=== PATIENT | male | born 1975 | race Caucasian/White ===

== ENCOUNTER 2024-11-18 11:03 | Emergency (ER) | payer OTHER, SELFPAY ==
[2024-11-18 11:10] VITALS: BP 117/84
[2024-11-18 12:07] LABS: INR 0.92; PT 12.9 Sec (11.4-14.6)
[2024-11-18 12:09] LABS: ALT (SGPT) 27 U/L (0-50); AST (SGOT) 21 U/L (17-59); Albumin 4.8 g/dl (3.5-5.0); Alkaline Phosphatase 79 U/L (38-126); Blood Urea Nitrogen 14 mg/dl (9-20); Calcium 9.9 mg/dl (8.4-10.2); Carbon Dioxide 15 mmol/L (22-30); Chloride 106 mmol/L (98-107); Glucose 140 mg/dl (70-99); Hematocrit 44.2 % (39.0-52.0); Hemoglobin 15.1 g/dL (13.0-18.0); Mean Corp Hgb Conc. 34.2 g/dL (33.0-37.0); Mean Corpuscular Volume 94.0 fL (80.0-94.0); Nucleated Red Blood Cells % 0 % (-); Platelet Count 196 10^3/uL (130-400); Potassium 4.3 mmol/L (3.5-5.1); Red Cell Dist. Width 12.6 % (11.5-14.5); Sodium 138 mmol/L (135-145); Total Protein 8.1 g/dl (6.3-8.2); eGFR > 60.00
[2024-11-18 12:14] LABS: Troponin I < 0.012 ng/ml
[2024-11-18 12:19] VITALS: BP 131/83
--- NOTE | 2024-11-18 12:32 | ED.GENMED ---
History of Present Illness
General
Chief Complaint: Cardiac Symptoms
Time Seen by Provider: 11/18/24 12:30
History of Present Illness
History of Present Illness:
PAST MEDICAL HISTORY AND REVIEW OF OLD RECORDS
- I reviewed records, the patient has a history of Alzheimer's, Parkinson's, bipolar/depression. I reviewed records. The patient was seen here in 2021 also with palpitations and was found to be tachycardic at that time. At that time, his glucose
was 285.
CHIEF COMPLAINT(S)
Palpitations with intermittent heart racing over the past few days.
HISTORY OF PRESENT ILLNESS
The patient is a 49-year-old male with a history of diabetes and hyperlipidemia, who presents to the emergency department with complaints of his heart racing intermittently over the past few days. He reports that the sensation is similar to 'my
heart wanting to jump out of my chest,' though he denies experiencing this sensation at the time of the visit. The patient describes having experienced symptoms of cognitive impairment following a COVID-19 infection, which he likens to Alzheimers
but without a formal diagnosis. No history of Alzheimers or Parkinsons disease is documented. He denies any recent diarrhea or vomiting and feels he is adequately hydrated owing to water intake at work. Initial evaluation reveals borderline high
heart rate; however, an electrocardiogram showed normal results without arrhythmias. Bloodwork indicated a low bicarbonate level, potentially linked to dehydration.
PAST MEDICAL AND SURIGICAL HISTORY
- Diabetes Mellitus
- Hyperlipidemia
- Post-COVID cognitive impairment
- Previous surgeries causing back pain, though specifics not detailed
CHRONIC MEDICAL CONDITIONS SIGNIFICANTLY AFFECTING CARE
- Diabetes Mellitus
- Hyperlipidemia
- Post-COVID cognitive impairment
PHYSICAL EXAM
General: Alert, no acute distress.
Skin: Warm, dry.
Head: Normocephalic, atraumatic.
Neck: Supple, trachea midline.
Ears, Nose, Mouth, and Throat: Oral mucosa moist.
Cardiovascular: Normal peripheral perfusion, No edema. Heart rate noted as borderline high.
Respiratory: Respirations are non-labored.
Gastrointestinal: Abdomen nondistended
Back: Normal alignment; History of surgical interventions causing pain.
Musculoskeletal: Normal range of motion, normal strength.
Neurological: Alert and oriented to person, place, time, and situation, no focal neurological deficits observed.
Psychiatric: Cooperative, appropriate mood and affect.
PROBLEM LIST
Acute:
- Intermittent palpitations
- Suspected dehydration
Chronic:
- Diabetes Mellitus
- Hyperlipidemia
- Cognitive impairment post-COVID
PLAN
- Intravenous fluids to address potential dehydration and low bicarbonate levels.
- Monitor vitals and heart rate for any changes or signs of arrhythmia.
- Follow-up with a resourcing consultant, Dr. Sepulveda, as previously established care.
- Consider further evaluation or monitoring for back pain related to past surgeries, if symptoms persist or worsen.
DIFFERENTIAL DIAGNOSIS
The Differential Diagnosis includes, in no particular order and is not limited to:
1. Atrial fibrillation
2. Supraventricular tachycardia
3. Anxiety-related palpitations
4. Electrolyte imbalance
5. Dehydration
6. Sinus tachycardia
7. Hyperthyroidism
8. Cardiac arrhythmia secondary to medications
9. Cardiac ischemia
10. Post-COVID cardiovascular sequelae
EKG
- Sinus 101, normal axis, QTc 477 ms, no significant change from 07/21/2021
LABS
- White count normal, hemoglobin 15.1, bicarb 15, troponin less than 0.012, troponin less than 0.012
SUMMARY OF ENCOUNTER
The patient, a 49-year-old male with a history of diabetes, hyperlipidemia, and post-COVID cognitive impairment, arrived in the emergency department with complaints of intermittent palpitations described as his heart racing and feeling as if it
wanted to 'jump out of my chest.' Initial evaluation indicated potential dehydration with low bicarbonate levels. Electrocardiogram results showed no arrhythmias. Routine labs included a thyroid-stimulating hormone test, which returned normal,
ruling out hyperthyroidism as a cause. Patient mentioned resuming Adderall (amphetamine and dextroamphetamine), a stimulant which may contribute to the palpitations. Management included intravenous fluids to address the potential dehydration. The
recommendation was made to continue follow-up with resourcing consultant Dr. Sepulveda.
PLAN
Continue monitoring heart rate and hydration status. Follow up with the resourcing consultant, Dr. Sepulveda, to evaluate the palpitations and any possible connection with medications or other underlying causes. Discuss possible adjustments or alternatives to
Adderall with healthcare provider due to its stimulant effects.
INDEPENDENT REVIEW OF LABS AND INTERPRETATION OF TESTS
My independent review of the complete metabolic panel indicated a low bicarbonate level suggestive of dehydration. My independent review of thyroid testing showed normal thyroid-stimulating hormone levels, ruling out hyperthyroidism.
PATIENT EDUCATION AND COUNSELING
The patient was informed about the potential role of Adderall in causing palpitations due to its stimulant properties and advised to discuss this with Dr. Sepulveda for further assessment and possible medication adjustments.
FOLLOW-UP INSTRUCTIONS
Continue care with Dr. Sepulveda, the resourcing consultant, for further evaluation of palpitations and to potentially address medication management.
MEDICATION RECONCILIATION
Patient reports resuming Adderall (amphetamine and dextroamphetamine) at a dose of 30 mg, which may contribute to palpitations.
MEDICAL DECISION MAKING
- Number and Complexity of Problems Addressed: Chronic conditions affecting care include diabetes mellitus, hyperlipidemia, and post-COVID cognitive impairment. The differential diagnosis includes atrial fibrillation, supraventricular tachycardia,
anxiety-related palpitations, electrolyte imbalance, dehydration, sinus tachycardia, hyperthyroidism, cardiac arrhythmia, cardiac ischemia, and post-COVID cardiovascular sequelae.
- Data:
Category 1: My independent interpretation of the electrocardiogram showed no arrhythmias.
Category 2: Reviewed thyroid-stimulating hormone test and complete metabolic panel.
DIAGNOSIS
- Intermittent palpitations (R00.2)
- Suspected dehydration (E86.0)
- Possible contribution from stimulant use, Adderall.
UPDATE
- The patient states that he did have symptoms while the EKG initially was performed however his EKG is relatively unremarkable with exception of borderline tachycardia which was sinus. He has no symptoms currently and has heart rate around 95.
Since his bicarb is low we did give IV fluid
Past History
Past History
ED Past Medical History: Asthma, Hypercholesterolemia, NIDDM and Other (COVID); Negative HTN or IDDM
ED Past Surgical History: Orthopedic (Back surgery 2006. Had discectomy and laminectomy L4-5 done in [place]. Second surgery 6 mos later, went back due to pain, MRI: ruptured disc...fused and plated L4-5, screws and rods L4-5.) and Other (umbilical
hernia surgery 07/2009, Dr. Alba. Right ankle reconstructed 1997. 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 Bilateral elbow surgery for ulnar nerve transposition. Bilateral carpal tunnel repairs.);
Negative Appendectomy, Bowel resection, Brain, Cardiac or Cholecystectomy
Social History
Tobacco: Non-smoker
Alcohol: Occasional
Drug: None
Personal:
Living: with family
Employment: Employed
Family History
Family History: Hypertension
Phy Exam
Physical Exam
Physical Exam:
See HPI
Course
Orders/Labs/Results
Orders:
Orders
11/18/24 11:06
ECG [Electrocardiogram (*1)] Urgent
Reason for Study: Chest Pain
11/18/24 11:07
EKG- Treatment ONCE
11/18/24 11:15
Complete Blood Count/With Diff Urgent
Comprehensive Metabolic Panel Urgent
PT/INR [Prothrombin Time] Urgent
TSH Reflex To Free T4 Urgent
Comment: ADD ON
Troponin I Urgent
11/18/24 12:30
Add On- LAB Urgent
Tests Added?: tsh reflex fT4
11/18/24 12:34
0.9% Sodium Chloride 1000 ml [Nss] 1,000 ml IV BOLUS
Abnormal Lab Results
11/18/24
11:15
MCH 32.1 H pg
(27.0-31.0)
Lymphocytes % 19.6 L %
(20.5-51.1)
Carbon Dioxide 15 L mmol/L
(22-30)
Glucose 140 H mg/dl
(70-99)
11/18/24 11:15
11/18/24 11:15
Vital Signs
Initial and Last Documented VS:
Initial Vital Signs
Temp Pulse Resp BP Pulse Ox
36.9 C 118 18 117/84 98
11/18/24 11:10 11/18/24 11:10 11/18/24 11:10 11/18/24 11:10 11/18/24 11:10
Last Documented Vital Signs
Temp Pulse Resp BP Pulse Ox
36.9 C 94 19 149/84 97
11/18/24 13:04 11/18/24 14:04 11/18/24 14:04 11/18/24 14:04 11/18/24 14:04
*Pulse Oximetry
SaO2: 97
Oxygen Mode of Delivery: Room air
Patient hypoxic: no
*Critical Care Note
Total Time (30-74mins, 75-104mins- exclusive of procedures): Not Applicable
ED Attending Note
-
Portions of this chart may have been created with voice recognition software.� Occasional wrong word or��sound alike� substitutions may have occurred due to the inherent limitations of voice recognition software.
Discharge Plan
Departure
Patient Disposition: Home (Routine Discharge)
Date of Disposition: 11/18/24
Time of Disposition: 14:21
Patient with high blood pressure during this ER visit?: Yes
Discharge Problem:
Palpitations
Instructions: Palpitations, BLOOD PRESSURE
Prescriptions:
No Action
metformin 1,000 MG tablet
1,000 mg PO BID
mirtazapine [Remeron SolTab] 45 MG tablet,disintegrating
45 mg PO DAILY
dextroamphetamine-amphetamine [Adderall] 20 MG tablet
20 mg PO DAILY
oxcarbazepine [Trileptal] 600 MG tablet
600 mg PO BID
ezetimibe [Zetia] 10 MG tablet
10 mg PO DAILY
acetaminophen 325 MG tablet
650 mg PO Q4HPRN PRN (Reason: mild pain) Qty: 1 0RF
ibuprofen 200 MG tablet
400 - 600 mg PO Q6HPRN PRN (Reason: moderate pain) Qty: 1 0RF
Referrals:
Omer Claire DO [Family Provider, Family Practice]
Jaciel Hinds MD [Active, Cardiology]
Activity Restrictions/Additional Instructions:
You are in a normal kind of sinus rhythm. Your vital signs are normal other basic blood work with exception of a low bicarbonate level is normal. Low bicarbonate levels can be seen with dehydration. Sometimes dehydration can lead to palpitations.
I recommend that you follow-up with Dr. Hinds. Thyroid testing is normal. Cardiac blood work also shows no sign of heart attack. Adderall could lead to palpitations.
Interventions
Interventions:
*Risk Screen - Suicide Last Done: 11/18/24 11:10
*General Assessment Last Done: 11/18/24 11:10
*Neglect/Abuse Screening Last Done: 11/18/24 11:10
*ED- Fall Risk Assessment Last Done: 11/18/24 11:10
*ED COVID-19 Vaccine History Last Done: 11/18/24 11:10
ED- Pulmonary Assessment Last Done: 11/18/24 13:04
ED- Cardiac Assessment Last Done: 11/18/24 13:04
Discharge Date and Time
Print Language: PASHTO
[2024-11-18 13:03] VITALS: BMI 30.4
[2024-11-18 13:04] VITALS: BP 131/83
[2024-11-18] MEDS: NSS 1000 IV (13:09)
[2024-11-18 14:00] VITALS: BP 149/84
[2024-11-18 14:04] VITALS: BP 149/84
== END 2024-11-18 14:41 | disposition home or self-care (01) ==
LOC: EMR 11:03
PROVIDERS: EMERGENCY PHYSICIAN Emergency Medicine; FAMILY PHYSICIAN Family Medicine
DX: R00.2 Palpitations (principal); E11.9 Type 2 diabetes mellitus without complications; E78.00 Pure hypercholesterolemia, unspecified; F02.80 Dementia in other diseases classified elsewhere, unspecified severity, without behavioral disturbance, psychotic disturbance, mood disturbance, and anxiety; G20.A1 Parkinson's disease without dyskinesia, without mention of fluctuations; G30.9 Alzheimer's disease, unspecified; J45.909 Unspecified asthma, uncomplicated; Z86.16 Personal history of COVID-19
CPT/HCPCS: 96360; 99284; 80053; 84443; 84484; 85025; 85610; 93005